=== PATIENT | female | born 1990 | race Caucasian/White ===

== ENCOUNTER 2024-01-01 19:37 | Emergency (ER) | payer SELFPAY ==
[2024-01-01 19:39] VITALS: BP 111/81; PULSE 103; RESP 16; TEMP 37.7; O2SAT 99; BMI 23.6
--- NOTE | 2024-01-01 20:37 | ED_ITS ---
Discharge Plan Disposition Patient Disposition: Home, Self-Care Chief Complaint: Fever Prescriptions Prescriptions: No Action No Known Home Medications Referrals Follow up/Referrals: Provider,MD Boaz [Primary Care Provider] - See instructions Clinical Impressions Clinical Impression: Influenza Instructions Patient Instructions: DI for Fever (Symptom) -- Adult Discharge ED Provider: Colleen Adkins General Adult HPI General Chief complaint: Fever Stated complaint: rosado nausea fever Time Seen by Provider: 01/01/24 20:26 Mode of Arrival: Ambulatory Source of Information: Patient Limitations: Language Barrier Description of Symptoms (Recalled from ER Triage Doc. by RN): Patient c/o headache, nausea, and subjective fever that started at work around 3pm. Did not take fever, but started feeling bad. History of Present Illness HPI narrative: Patient is a previously healthy 33-year-old female with 1 day of headache, body aches, chills, congestion. Her family has had the flu this week so she is concerned this is causing her symptoms. She took Advil with minimal improvement in her symptoms. Related Data Home Medications Medication Instructions Recorded Confirmed No Known Home Medications 01/01/24 01/01/24 Allergies Allergy/AdvReac Type Severity Reaction Status Date / Time No Known Allergies Allergy Verified 01/01/24 19:56 [facility] Disclaimer: The information contained in this section may have been updated after the patient was seen, as this information can be updated by other users. Medical History No significant past medical history Social History Smoking Status: Never smoker ROS Obtained: Yes All systems reviewed & no additional complaints except as documented Physical Exam General General appearance: alert and in no apparent distress Head Head exam: atraumatic, normocephalic and normal inspection Eye Eye exam: Present normal appearance, PERRL and EOMI ENT ENT exam: Present normal exam, normal oropharynx, mucous membranes moist, TM's normal bilaterally and normal external ear exam Neck Neck exam: Present normal inspection, full ROM and trachea midline; Absent meningismus or lymphadenopathy Chest Chest inspection: Present normal inspection and symmetric chest wall rise; Absent tenderness Respiratory Respiratory exam: Present normal lung sounds bilaterally; Absent respiratory distress Cardiovascular Cardiovascular exam: Present regular rate and normal rhythm; Absent JVD Abdominal Exam Abdominal exam: Present soft and normal bowel sounds; Absent distention, tenderness or guarding Extremities Exam Extremities exam: Present normal inspection, full ROM and normal capillary refill; Absent calf tenderness Back Exam Back exam: Present normal inspection; Absent tenderness Neurological Exam Neurological exam: Present alert and oriented X3 Psychiatric Psychiatric exam: Present normal affect and normal mood Skin Skin exam: Present warm, dry, intact and normal color Lymphatic Lymphatic Findings: no adenopathy Medical Decision Making John Inquiry Pt receiving controlled substance: No John was queried for this patient: No Vital Signs: 01/01/24 19:39 01/01/24 19:57 01/01/24 21:30 Temperature 99.9 F H Temperature Source Oral Oral Pulse Rate 95 H Pulse Rate [Radial] 103 H Respiratory Rate 16 Blood Pressure 96/60 L Blood Pressure [Right Arm] 111/81 Blood Pressure Mean 68 Blood Pressure Mean [Right Arm] 91 Blood Pressure Source [Right Arm] Automatic Cuff Blood Pressure Position [Right Arm] Sitting 02 Sat by Pulse Oximetry 99 98 Oxygen Delivery Method Room Air 01/01/24 22:00 01/01/24 22:30 Temperature Temperature Source Pulse Rate 90 85 Pulse Rate [Radial] Respiratory Rate Blood Pressure 98/63 L 94/64 L Blood Pressure [Right Arm] Blood Pressure Mean 74 73 Blood Pressure Mean [Right Arm] Blood Pressure Source [Right Arm] Blood Pressure Position [Right Arm] 02 Sat by Pulse Oximetry 97 98 Oxygen Delivery Method Lab Data Lab Results 01/01/24 20:33: SARS-CoV-2 (PCR) Not detected, Influenza A Untype (PCR) Not detected, Influenza Type B (PCR) Detected A 01/01/24 20:41: WBC 7.5, RBC 4.24, Hgb 13.0, Hct 38.3, MCV 90.2, MCH 30.7, MCHC 34.0, RDW 12.7, Plt Count 216, MPV 8.8, Neut % (Auto) 80.6 H, Lymph % (Auto) 13 .8, [place] % (Auto) 4.4, Eos % (Auto) 0.8, Baso % (Auto) 0.4, Neut # (Auto) 6.0, Lymph # (Auto) 1.0, [place] # (Auto) 0.3, Eos # (Auto) 0.1, Baso # (Auto) 0.0, Sodium 135 L, Potassium 3.5, Chloride 104, Carbon Dioxide 26, Anion Gap 8.5, BUN 5 L, Creatinine 0.50 L, Estimated Creat Clear 134, Estimated GFR 142, Est GFR ( Amer) 172, Glucose 101 H, Calcium 8.4, Total Bilirubin 0.2, AST 30, ALT 19, Alkaline Phosphatase 59, Total Creatine Kinase 97, Total Protein 7.7, Albumin 4.3, Globulin 3.4 H, Albumin/Globulin Ratio 1.3, Serum HCG, Qual Negative 01/01/24 20:41 01/01/24 20:41 Orders (Tests/Meds): ED MEDICATIONS Discontinued Medications Generic Name Dose Route Start Last Admin Trade Name Freq PRN Reason Stop Dose Admin Acetaminophen 1,000 mg 01/01/24 20:19 01/01/24 20:50 Acetaminophen 500mg Tab PO 01/01/24 20:20 1,000 mg ONCE ONE Administration Lactated Ringer's 500 mls @ 999 mls/hr 01/01/24 20:19 01/01/24 20:50 Lactated Ringer's 1000 Ml Bag IV 01/01/24 20:49 999 mls/hr .Q31M ONE Administration Ketorolac Tromethamine 15 mg 01/01/24 20:19 01/01/24 20:49 Ketorolac 30mg/Ml Vial IV 01/01/24 20:20 15 mg ONCE ONE Administration Miscellaneous 1 each 01/01/24 20:30 01/01/24 20:44 Pha To Nursing Instruction NOTAPPLIC 01/01/24 20:31 Not Given ONCE ONE Ondansetron HCl 7.9605 mg 01/01/24 20:19 01/01/24 20:44 Ondansetron 4mg Odt SL 01/01/24 20:20 Not Given ONCE ONE Ondansetron HCl 4 mg 01/01/24 20:35 01/01/24 20:49 Ondansetron 4mg/2ml Vial IV 01/01/24 20:36 4 mg ONCE ONE Administration ORDERS Category Date Time Status CBC [Complete Blood Count Auto Diff] Stat Lab 01/01/24 20:41 Completed CK [Creatine Kinase] Stat Lab 01/01/24 20:41 Completed CMP [Comprehensive Metabolic Panel] Stat Lab 01/01/24 20:41 Completed Rapid PCR Covid and Flu A/B Stat Lab 01/01/24 20:33 Completed Serum [HCG Qualitative, Serum] Stat Lab 01/01/24 20:41 Completed Medical Decision Narrative: Considered multiple causes of patient's presentation including most likely viral syndrome, but also considered that she may have dehydration, ALESSANDRO, electrolyte abnormalities, viral myositis or even rhabdomyolysis. For this reason obtain broad laboratory evaluation and provided LR, Toradol, Tylenol, Zofran, and patient had dramatic improvement in her symptoms. Independently reviewed and interpreted her labs which were significant for CK within normal limits, no ALESSANDRO or significant abnormalities of CBC or CMP. Discussed this with patient and that she has influenza and it is appropriate for discharge. Also discussed risks/benefits of tamiflu and patient wishes to try treatment with Tamiflu so prescribed this along with Zofran and recommended Tylenol and ibuprofen as well. Discharged stable with symptoms dramatically improved. Critical Care Critical Care Time Critical Care Time: No
[2024-01-01 20:49] LABS: Coronavirus 19, PCR Not Detected (NotDetected); Influenza A, PCR Not Detected (NotDetected)
[2024-01-01 20:49] LABS: Basophils % 0.4 % (0.1-2.0); Eosinophils # 0.1 K/mm3 (0.0-0.4); Eosinophils % 0.8 % (0.1-12.0); Hematocrit 38.3 % (37.0-47.0); Lymphocytes % 13.8 % (10-50); Mean Corpuscular Hemoglobin 30.7 pg (27.0-31.2); Mean Corpuscular Volume 90.2 fl (81-99); Mean Platelet Volume 8.8 fl (7.4-10.4); Monocytes # 0.3 K/mm3 (0.1-1.0); Monocytes % 4.4 % (1.7-9.3); Neutrophils % 80.6 % (37.0-80.0); Platelet Count 216 K/mm3 (142-424); Red Blood Count 4.24 M/mm3 (4.20-5.40); Red Cell Distribution Width 12.7 % (11.5-17.5); White Blood Count 7.5 K/mm3 (4.8-10.8)
[2024-01-01] MEDS: KETOROLAC 30MG/ML VIAL 15 MG IV (20:49)
[2024-01-01] MEDS: ONDANSETRON 4MG/2ML VIAL 4 MG IV (20:49)
[2024-01-01] MEDS: ACETAMINOPHEN 500MG TAB 1000 MG PO (20:50)
[2024-01-01] MEDS: LACTATED RINGERS 1000ML 500 ML 999 ML IV (20:50)
[2024-01-01 20:58] LABS: Alanine Aminotransferase 19 U/L (12-78); Albumin Level 4.3 g/dl (3.5-5.0); Albumin/Globulin Ratio 1.3 (1.1-1.8); Alkaline Phosphatase 59 U/L (38-126); Anion Gap 8.5 mEq/L (5-15); Aspartate Amino Transferase 30 U/L (14-36); Bilirubin,Total 0.2 mg/dl (0.2-1.3); Blood Urea Nitrogen 5 mg/dl (7-17); Calcium 8.4 mg/dl (8.4-10.2); Carbon Dioxide 26 mmol/L (22.0-30.0); Chloride 104 mmol/L (98-107); Creatine Kinase 97 U/L (30-135); Creatinine Clearance Estimated 134 mL/min (50-200); Estimated Glomerular Filt Rate 142 ml/min (>60); GFR (African American) 172 ML/MIN (>60); Globulin 3.4 g/dL (1.3-3.2); Glucose 101 mg/dl (74-100); Potassium 3.5 mmoL/L (3.5-5.1); Sodium 135 mmol/L (136-145); Total Protein,Serum 7.7 g/dl (6.3-8.2)
[2024-01-01 21:08] LABS: Influenza B, PCR Detected (NotDetected)
[2024-01-01 21:14] LABS: HCG Qualitative, Serum Negative (Negative)
[2024-01-01 21:30] VITALS: BP 96/60; PULSE 95; O2SAT 98
[2024-01-01 22:00] VITALS: BP 98/63; PULSE 90; O2SAT 97
[2024-01-01 22:30] VITALS: BP 94/64; PULSE 85; O2SAT 98
[2024-01-01 23:00] VITALS: BP 100/69; PULSE 85; O2SAT 97
[2024-01-01 23:26] VITALS: BP 100/69; PULSE 81; RESP 16; TEMP 37.6; O2SAT 98
== END 2024-01-01 23:27 | disposition home or self-care (01) ==
PROVIDERS: Emergency Provider Emergency Medicine
DX: J10.2 Influenza due to other identified influenza virus with gastrointestinal manifestations (principal); R51.9 Headache, unspecified; R11.0 Nausea; R68.83 Chills (without fever); R09.81 Nasal congestion
CPT/HCPCS: 80053; 82550; 84703; 85025; 87636; 96374; 96375; 99285; J2405